=== PATIENT | male | born 1935 | race Caucasian/White ===

== ENCOUNTER 2023-06-18 16:29 | Inpatient (IN) | payer MEDICARE ==
[~2023-06-18] VITALS: Ht 172.7 cm; Wt 85.5 kg
[2023-06-18] VITALS (95 sets, daily range): BP systolic 115–143; BP diastolic 85–108; PULSE 87–152; TEMP 97.7–97.8; O2SAT 86–96
[~2023-06-18 16:29] MED LIST: CARDURA 8MG TAB8 MG PO; NORCO 325 MG-51 TAB PO; NORMODYNE200 MG PO; PRINIVIL40 MG PO; ZOCOR 20MG20 MG PO
[2023-06-18] MEDS ORDERED: dilTIAZem 25 MG/5 ML VIAL IV ONE (16:45)
[2023-06-18 17:34] LABS: BASO # 0.1 K/mm3 (0.0-0.2); BASO % 0.8 % (0.0-2.0); EOS # 0.1 K/mm3 (0.0-0.7); EOS % 0.9 % (0.0-4.0); GRAN # 4.5 K/mm3 (1.4-6.5); GRAN % 68.4 % (42.2-75.2); HEMATOCRIT 40.5 % (42.0-52.0); HEMOGLOBIN 13.2 g/dl (13.5-18.0); LYMPH # 1.3 K/mm3 (1.2-3.4); LYMPH % 19.2 % (20.0-51.0); MEAN CELL VOLUME 101 fl (80.0-100.0); MEAN CORPUSCULAR HEMOGLOBIN 33 pg (27-31); MEAN CORPUSCULAR HGB CONC 33 g/dl (33.0-37.0); MEAN PLATELET VOLUME 10.4 fl (7.4-10.4); MONO # 0.7 K/mm3 (0.1-0.6); MONO % 10.5 % (1.7-9.3); PLATELET COUNT 154 K/mm3 (130-400); RED BLOOD COUNT 4.03 M/mm3 (4.20-5.60); REDCELL DISTRIBUTION WIDTH-CV 14.5 % (11.5-14.5)
[2023-06-18 18:12] LABS: ALBUMIN 3.7 gm/dL (3.4-4.8); BILIRUBIN,TOTAL 1.3 mg/dL (0.2-1.2); CALCIUM 10.1 mg/dL (8.4-10.2); CREATININE, serum 0.96 mg/dL (0.72-1.25); POTASSIUM 4.1 mmol/L (3.5-4.5); TOTAL PROTEIN 6.2 gm/dL (6.2-8.1)
[2023-06-18 18:22] LABS: TROPONIN-I 0.052 ng/mL (0.00-0.033)
[2023-06-18] MEDS ORDERED: Acetaminophen 325 MG TAB PO PRN (18:45)
[2023-06-18] MEDS ORDERED: Heparin 5,000 UNITS/ML 1 ML VIAL IV ONE (19:00)
[2023-06-18] MEDS ORDERED: Heparin 5,000 UNITS/ML 1 ML VIAL IV PRN (19:00)
[2023-06-18] MEDS ORDERED: Heparin/D5W 250 ML IV SCH (19:00)
[2023-06-18] MEDS ORDERED: NS 50 ML IV SCH (19:05)
[2023-06-18] MEDS ORDERED: Iohexol 350 - 100 ML VIAL IV ONE (19:05)
[2023-06-18 19:26] LABS: INR 1.2 (0.8-3.0); PROTHROMBIN TIME 12.8 SECONDS (9.7-12.8)
[2023-06-18 19:29] LABS: PARTIAL THROMBOPLASTIN TIME 34.9 SECONDS (26.0-37.0)
[2023-06-18 19:46] LABS: THYROID STIMULATING HORMONE 1.17 uIU/mL (0.350-4.940)
[2023-06-18] MEDS ORDERED: CARDURA XL8 MG PO (20:04)
[2023-06-18] MEDS ORDERED: ICAPS AREDS2 C1 EACH PO (20:05)
[2023-06-18] MEDS ORDERED: Furosemide 40 MG/4 ML VIAL IV ONE (20:30)
--- NOTE | 2023-06-18 20:50 | NUR ---
PATIENT ARRIVED TO ICU VIA BED FROM ER. PATIENT ARRIVED ON CARDIZEM AT MAX RATE OF 15MG/HR AND NOTED TO STILL BE IN AFIB AT 113-130'S. PATIENT ARRIVED ON ROOM AIR AND HAS NO COMPLAINTS OF SHORTNESS OF BREATH AT THIS TIME. PATIENT ARRIVED WITH GLASSES, PANTS, UNDERWEAR, SOCKS, AND SHOES. EVONNE PÉREZ, NOTIFIED OF PATIENTS ARRIVAL WELL CURRENT RATE OF CARDIZEM AND CURRENT HEART RATE.
[2023-06-18] MEDS ORDERED: Eye Formula MVI w/Minerals TABLET PO SCH (21:00)
[2023-06-18] MEDS ORDERED: Atorvastatin 10 MG TAB PO SCH (21:00)
[2023-06-18] MEDS ORDERED: Simvastatin 20 MG **** subs to Atorvastatin 10 MG PO SCH (21:00)
[2023-06-18] MEDS ORDERED: methylPREDNISolone Sod Succ 40 MG/ML VIAL IV SCH (23:30)
[2023-06-18] MEDS ORDERED: dexAMETHasone 4 MG/ML VIAL IV SCH (23:38)
[2023-06-18] MEDS ORDERED: Doxycycline Hyclate 100 MG in NS 150 ML IV SCH (23:45)
[2023-06-19] VITALS (566 sets, daily range): BP systolic 95–127; BP diastolic 62–97; PULSE 76–160; TEMP 97.6–98; O2SAT 52–100
[2023-06-19] MEDS ORDERED: LORazepam 2 MG/ML 1 ML VIAL IV ONE (00:45)
[2023-06-19 04:39] LABS: BASO % 0.5 % (0.0-2.0); EOS # 0.1 K/mm3 (0.0-0.7); EOS % 0.8 % (0.0-4.0); GRAN # 5.2 K/mm3 (1.4-6.5); GRAN % 83.1 % (42.2-75.2); HEMOGLOBIN 13.1 g/dl (13.5-18.0); LYMPH # 0.7 K/mm3 (1.2-3.4); LYMPH % 11.3 % (20.0-51.0); MEAN CELL VOLUME 97 fl (80.0-100.0); MEAN CORPUSCULAR HEMOGLOBIN 33 pg (27-31); MEAN CORPUSCULAR HGB CONC 35 g/dl (33.0-37.0); MEAN PLATELET VOLUME 10.8 fl (7.4-10.4); MONO # 0.2 K/mm3 (0.1-0.6); MONO % 3.8 % (1.7-9.3); PLATELET COUNT 145 K/mm3 (130-400); RED BLOOD COUNT 3.92 M/mm3 (4.20-5.60); REDCELL DISTRIBUTION WIDTH-CV 14.4 % (11.5-14.5)
[2023-06-19 04:57] LABS: CALCIUM 9.9 mg/dL (8.4-10.2); CHOLESTEROL RISK RATIO 2.5; CREATININE, serum 0.92 mg/dL (0.72-1.25); POTASSIUM 4.1 mmol/L (3.5-4.5)
--- NOTE | 2023-06-19 07:00 | NUR ---
REPORT RECEIVED FROM CLOTILDE SLADE. PT RESTING IN BED, VSS. PT IN AFIB BUT RATE IS WELL CONTROLLED. CARDIZEM INFUSING TO PERIPHERAL IV ORDERED. PT IS ALERT AND ORIENTED, DENIES NEEDS AT THIS TIME, CALL LIGHT IN REACH.
--- NOTE | 2023-06-19 08:40 | NUR ---
O2 SATS DROP TO MID 80'S WHILE PT SLEEPS, OXYGEN APPLIED AT 3L PER NC TO KEEP SATS ABOVE 90%.
[2023-06-19] MEDS ORDERED: Pantoprazole 40 MG in NS 10 ML IV SCH (09:00)
[2023-06-19] MEDS ORDERED: Nicotine 14 MG DAILY PATCH TD SCH (09:00)
[2023-06-19] MEDS ORDERED: Albuterol/Ipratropium 3 MG-0.5 MG/3 ML Neb Soln IH PRN (11:00)
[2023-06-19] MEDS ORDERED: predniSONE 20 MG TAB PO SCH (11:00)
--- NOTE | 2023-06-19 11:06 | NUR ---
Social Work met with patient at bedside to discuss discharge planning. Patient arguing wth nurse and attempting to get out of bed. Patient redirected multiple times by nurse. Patient agreeable to talk with SW but did display annoyance with "repeating questions". Patient verified that he lives in [place], [place] with his Lily ([phone]). Patient states he listed his daughter Suad as his DPOA but is unable to provide her contact information. Patient has a living will on file but unable to locate a DPOA document. Patient sees Dr. Brennan as his PCP and uses [facility] pharmacy. Patient states he has two canes at home and drives himself to appointments and drives his to her appointments. Patient plans to return home at discharge. SW spoke with his and daughter on speaker phone who verified patient's information. Discharge Plan: home
[2023-06-19] MEDS ORDERED: Albuterol/Ipratropium 3 MG-0.5 MG/3 ML Neb Soln IH SCH (13:00)
--- NOTE | 2023-06-19 13:52 | NUR ---
Data: Patient accepted Paper Control Clerk visit for prayer. Patient had two visitors who had just arrived. Patient believes that he will be transferred to a room upstairs today. Patient was eating lunch. Patient has a witty sense of humor. Assessment: Patient is grateful to be feeling better, and is enjoying both his visitors and his food. Plan of Care: Paper Control Clerk provided prayer. Chaplains will remain available as needed/requested while Patient is admitted to this hospital.
--- NOTE | 2023-06-19 14:30 | NUR ---
PATIENT CAME FROM ICU. AFTER PATIENT WAS HELPED TO THE BED FROM THE WHEELCHAIR PATIENT HEART RATE KEPT GOING UP. PATIENT WAS TACHYCARDIC AND WITH OXYGEN SATURATION IN THE 80'S.PATIENT OXYGEN WAS INCREASED TO 3L O2/NC. PATIENT HAS HEPARIN DRIP AND CARDIZEM PER EMAR. PATIENT HAS BILATERAL PITTING EDEMA AND A RED ABRATION ON HIS LEFT MIDBACK.CALL LIGHT WITHIN REACH. BED AT LOWEST POSITION.
[2023-06-19] MEDS ORDERED: Furosemide 40 MG TAB PO SCH (16:00)
[2023-06-19] MEDS ORDERED: Apixaban 5 MG TAB PO SCH ×2 (21:00)
[2023-06-20] VITALS (23 sets, daily range): BP systolic 100–139; BP diastolic 60–98; PULSE 50–134; TEMP 96–98.6
[2023-06-20] MEDS ORDERED: dilTIAZem 25 MG/5 ML VIAL IV ONE (05:15)
[2023-06-20 06:21] LABS: CREATININE, serum 1.26 mg/dL (0.72-1.25); MAGNESIUM 1.9 mg/dL (1.6-2.6); POTASSIUM 4.3 mmol/L (3.5-4.5)
--- NOTE | 2023-06-20 08:30 | NUR ---
PATIENT IS REFUSING POST-OP VITALS. PATIENT KEEPS REMOVING HIS BLOOD PRESSURE CUFF AND PULSE OXYMETRY VARIOUS TIMES. PATIENT HAS BEEN EDUCATED ON THE IMPORTANCE OF MONITORING HIS VITAL SIGNS WHILE ON CARDIZEM DRIP AND KEEPIGN HIS NASAL CANULA INPLACE. CALL LIGHT WITHIN REACH. BED ALARM IN PLACE.
--- NOTE | 2023-06-20 08:33 | NUR ---
Patient alert and oriented x4. patient eating breakfast and remains on post-op vitals. patient has bilateral leg edema.bed alarm on. call light within reach.
[2023-06-20] MEDS ORDERED: Verapamil SR 120 MG TAB PO SCH (09:00)
[2023-06-21] VITALS (12 sets, daily range): BP systolic 118–148; BP diastolic 73–95; PULSE 78–134; TEMP 97.4–98.5
--- NOTE | 2023-06-21 08:00 | NUR ---
Pt assessment complete. Pt sitting up in bed, dangling feet. Pt denies pain, n/v, headache, dizziness. Pt had qustions regarding AM meds. Discussed AM meds and answered questions. No further needs at this time. industrial safety and health technician in room. Pt has call light in reach and bed alarm on.
--- NOTE | 2023-06-21 08:10 | NUR ---
Rounded on patient with CLOTILDE Gaona. Agree with assessment as charted. Patient awake, alert and oriented, forgetful. Fall precautions in place. Bed in lowest position with call light within reach.
[2023-06-21] MEDS ORDERED: LR 1,000 ML IV SCH (10:00)
--- NOTE | 2023-06-21 13:54 | NUR ---
Pt reporting 5/10 pain in left flank/back. Pt points to left kidney area. Pt reports pain induced nausea. Pt dry heaving at bedside. Pain meds administered per EMAR.
--- NOTE | 2023-06-21 15:28 | NUR ---
Pt off the floor to labor relations consultant
[2023-06-21] MEDS ORDERED: Amiodarone 200 MG TAB PO SCH (15:58)
[2023-06-21] MEDS ORDERED: Hydrocortisone 1% Cream 30 GM TUBE TP PRN (16:00)
--- NOTE | 2023-06-21 16:26 | NUR ---
PROCEDURE COMPLETED, PT ALERT AND ORIENTED. DENIES PAIN OR NAUSEA. PRODUCTIVE COUGH NOTED. PATIENT TRANSPORTED VIA BED TO [facility], FAMILY WAITING AT BEDSIDE, UPDATE PROVIDED. VITAL SIGNS TAKEN ON ARRIVAL, VSS. RT PRESENT UPON ARRIVAL FOR EKG. TRANSFER OF CARE TO CLOTILDE MARTÍNEZ. CALL LIGHT WITHIN REACH, BED IN LOWEST POSITION, X3 BEDRAILS IN PLACE.
--- NOTE | 2023-06-21 18:02 | NUR ---
Pt resting in bed. and daughter (Suad) are at bedside. Pt denies pain, nausea, headache. No further needs at this time. Pt has call light in reach.
[2023-06-21 19:32] LABS: HEMOGLOBIN 12.9 g/dl (13.5-18.0); MEAN CELL VOLUME 100 fl (80.0-100.0); MEAN CORPUSCULAR HEMOGLOBIN 33 pg (27-31); MEAN CORPUSCULAR HGB CONC 33 g/dl (33.0-37.0); MEAN PLATELET VOLUME 10.4 fl (7.4-10.4); PLATELET COUNT 148 K/mm3 (130-400); RED BLOOD COUNT 3.91 M/mm3 (4.20-5.60); REDCELL DISTRIBUTION WIDTH-CV 14.8 % (11.5-14.5)
[2023-06-21 19:51] LABS: CALCIUM 9.5 mg/dL (8.4-10.2); CREATININE, serum 1.19 mg/dL (0.72-1.25); POTASSIUM 4.3 mmol/L (3.5-4.5)
[2023-06-21 22:40] LABS: ANISOCYTOSIS 1+; BAND 1 % (0-10); LYMPHOCYTE 5 % (20.0-51.0); NEUTROPHILS 93 % (42.0-75.2); OVALOCYTES 1+
[2023-06-21 22:41] LABS: PLATELET ESTIMATE NORMAL (NORMAL)
[2023-06-22 03:13] VITALS: BP 142/90; PULSE 83; TEMP 97.5
--- NOTE | 2023-06-22 05:51 | NUR ---
NURSING SHIFT ASSESSMENT COMPLETED. THE PATIENT WAS ALERT, APPROPRIATE AND INTERACTIVE. THE PATIENT DENIED PAIN OR DISCOMFORT. THE PATIENT ENJOYS SITTING AT THE BEDSIDE WITH HIS FEET ON THE FLOOR. THE BED ALARM IS ON. ALL PERSONAL BELONGINGS ARE WITHIN REACH. THE CALL LIGHT IS WITHIN REACH. THE BED IS IN THE LOW POSITION. THE PLAN OF CARE AND EVENING MEDICATIONS REVIEWED. QUESTIONS ANSWERED.
[2023-06-22 07:07] VITALS: BP 154/87; PULSE 86; TEMP 97.5
--- NOTE | 2023-06-22 08:00 | NUR ---
Pt sitting at bedside with feet dangling. A&Ox4. VSS. S1S2 with irregular rhythm. Clear lung sounds. Palpable pulses and baseline strength in all extremities. Pt on 3L O2 via NC. Pt uses urinal at bedside. IV in left upper arm is patent. Pt denies pain, n/v, headache, dizzines. Pt has call light in reach and bed alarm on.
[2023-06-22] MEDS ORDERED: Furosemide 40 MG/4 ML VIAL IV ONE (09:00)
[2023-06-22] MEDS ORDERED: Spironolactone 25 MG TAB PO SCH (09:00)
[2023-06-22] MEDS ORDERED: Lisinopril 20 MG TAB PO SCH (09:49)
[2023-06-22] MEDS ORDERED: ELIQUIS 5MG PO (10:04)
[2023-06-22] MEDS ORDERED: PACERONE200 MG PO (10:07)
--- NOTE | 2023-06-22 10:40 | NUR ---
Patient was at 91% on RA sitting. He walked 200 ft. and dropped to 87% and need 3L NC to get to 90%. RT left patient on 2L resting.
[2023-06-22 11:11] VITALS: BP 131/102; PULSE 84; TEMP 97.4
--- NOTE | 2023-06-22 11:20 | NUR ---
Notified Dr Chen about Pt's BP. Diastolic pressure in low 100s. Per provider "Pt is ok."
[2023-06-22] MEDS ORDERED: ALDACTONE 25MG25 M1 PO (11:22)
[2023-06-22] MEDS ORDERED: TOPROL XL 25MG25 MG PO (11:24)
[2023-06-22] MEDS ORDERED: LASIX 40MG TABL40 MG PO (11:25)
[2023-06-22] MEDS ORDERED: OXYGEN NASAL.CANN (11:29)
--- NOTE | 2023-06-22 12:00 | NUR ---
Pt sitting on edge of bed eating lunch. No concerns at this time. and daughter at bedside. Pt denies pain. Pt has call light in reach and bed alarm on.
--- NOTE | 2023-06-22 13:24 | NUR ---
lay out worker was notified by Dr. Chen that patient is medically stable for discharge. Patient may need oxygen, exercise oximetry test has been ordered. EUGENIA notes PT/OT has not been ordered. EUGENIA contacted Dr. Chen and requested PT/OT orders. EUGENIA spoke with LUCY Avery, whom expressed he was not recommending patient return home at this time as he is unstable. EUGENIA notes patient's RT exercise oximetry test was completed and patient needs 3 liters of oxygen with exertion. EUGENIA faxed referral to [facility] for oxygen. EUGENIA met with patient, and patient's daughter to review recommendations. SW expressed the hospital is recommending SNF and provided the Medicare.gov list of options. Patient stated no he would not go to a facility, he wants to return home. SW asked patient's family if they felt comfortable caring for patient in the home. Patient's daughter stated she is retired and would be able to assist patient at home if needed. Patient expressed he wanted to go home with home health services. SW provided Medicare.gov list of options. SW expressed she would return in a bit for patient's choice of home health. SW returned to meet with patient to discuss patient's choice. Patient chose [facility]. SW again discussed patient's family's ability to care for him at home. SW asked patient's if she feels comfortable caring for him at home, patient's stated "I'll try." Patient's daughter expressed she would be available for additional support. SW expressed if the patient decided when he got home that it was not working out and patient wanted to go to a SNF for rehab, he would have 30 days from discharge to go to SNF. EUGENIA confirmed patient's family kept the Medicare.gov list of nursing facilities and the family expressed they would look at this option if he does not do well at home with home health. Patient's daughter stated that patient is about at his baseline minus the oxygen need. Patient's daughter mentioned that patient is a smoker and was concerned about him smoking with the oxygen. SW expressed with patient that he is unable to smoke with the oxygen on or near his tank. Patient expressed he understood. SW reviewed the important message from medicare with patient. Patient understood. No questions or concerns. Patient signed the form. EUGENIA made a copy, placed original in chart and provided copy to patient. EUGENIA was notified patient's oxygen would be here at 2 pm. SW notified patient and patient's family. No further questions or concerns at this time. SW notified patient's nurse and doctor with patient's plan to return home with home health. SW faxed referral and discharge orders to [facility]. Discharge plan: Home with home health
--- NOTE | 2023-06-22 14:08 | NUR ---
child daycare worker left a message for the patient's PCP social security benefits interviewer.
--- NOTE | 2023-06-22 14:30 | NUR ---
Educated Pt on discharge instructions and information. Daughter and in room. D/C IV from upper left arm and took off tele. Answered Pt and family quesitons. Pt transported to car via WC.
[2023-06-28] MEDS ORDERED: Amiodarone 200 MG TAB PO SCH (21:00)
[2023-07-06] MEDS ORDERED: Amiodarone 200 MG TAB PO SCH (09:00)
== END 2023-06-22 14:30 | disposition home health service (06) | DRG 281 ==
LOC: COL.ER 16:29 → MEDICAL 18:50 → ICU 18:50 → MEDICAL 06-19 14:26
PROVIDERS: Emergency Medicine; Internal Medicine; Nurse Practitioner; Nurse Practitioner Family; ADMIT Hospitalist
DX: I48.91 Unspecified atrial fibrillation (principal); I21.4 Non-ST elevation (NSTEMI) myocardial infarction; J44.1 Chronic obstructive pulmonary disease with (acute) exacerbation; I11.0 Hypertensive heart disease with heart failure; I50.9 Heart failure, unspecified; E78.5 Hyperlipidemia, unspecified; N40.0 Benign prostatic hyperplasia without lower urinary tract symptoms; D64.9 Anemia, unspecified
CPT/HCPCS: C9113; J0282; J1100; J1644; J1940; J2060; J2704; J7060; J7512; Q9967

== ENCOUNTER 2023-09-13 16:46 | Inpatient (IN) | payer MEDICARE ==
[~2023-09-13] VITALS: Ht 172.7 cm; Wt 67.7 kg
[~2023-09-13 16:46] MED LIST changes: +ALDACTONE 25MG25 M1 PO; +CARDURA XL8 MG PO; +ELIQUIS 5MG PO; +ICAPS AREDS2 C1 EACH PO; +LASIX 40MG TABL40 MG PO; +OXYGEN NASAL.CANN; +PACERONE200 MG PO; +TOPROL XL 25MG25 MG PO
[2023-09-13] MEDS ORDERED: Morphine 4 MG/ML VIAL IV ONE (17:15)
[2023-09-13] MEDS ORDERED: Ondansetron 4 MG/2 ML VIAL IV ONE (17:15)
[2023-09-13 17:25] LABS: HEMATOCRIT 38.1 % (42.0-52.0); HEMOGLOBIN 12.8 g/dl (13.5-18.0); MEAN CELL VOLUME 97 fl (80.0-100.0); MEAN CORPUSCULAR HEMOGLOBIN 33 pg (27-31); MEAN CORPUSCULAR HGB CONC 34 g/dl (33.0-37.0); MEAN PLATELET VOLUME 9.6 fl (7.4-10.4); PLATELET COUNT 270 K/mm3 (130-400); RED BLOOD COUNT 3.91 M/mm3 (4.20-5.60); REDCELL DISTRIBUTION WIDTH-CV 14.1 % (11.5-14.5)
[2023-09-13 17:42] LABS: CALCIUM 10.9 mg/dL (8.4-10.2); CREATININE, serum 3.06 mg/dL (0.72-1.25); POTASSIUM 5.5 mEq/L (3.5-4.5); TOTAL PROTEIN 6.9 g/dl (6.2-8.1)
[2023-09-13 17:45] LABS: PH 8.5 (5.0-8.5); URINE APPEARANCE TURBID (CLEAR/HAZY); URINE BLOOD 3+ (NEGATIVE); URINE COLOR YELLOW (YELLOW); URINE GLUCOSE TRACE (NEGATIVE); URINE KETONE NEGATIVE (NEGATIVE); URINE NITRATE POSITIVE (NEGATIVE); URINE PROTEIN(semi-quant) 2+ (NEGATIVE); URINE UROBILINOGEN 0.2 E.U/dL (0.2-1.0)
[2023-09-13 18:06] LABS: COLLECTION METHOD CATHETER
[2023-09-13 18:07] LABS: MUCOUS PRESENT (NOT PRESENT); URINE BACTERIA MANY /hpf (NONE SEEN); URINE RBC >50 /hpf (0-2); URINE WBC >50 /hpf (0-2)
[2023-09-13 18:19] LABS: BAND 6 % (0-10); LYMPHOCYTE 7 % (20.0-51.0); NEUTROPHILS 84 % (42.0-75.2)
[2023-09-13 18:21] LABS: ANISOCYTOSIS 1+; PLATELET ESTIMATE NORMAL (NORMAL)
[2023-09-13] MEDS ORDERED: NS 1,000 ML IV ONE (18:45)
[2023-09-13] MEDS ORDERED: Patiromer 8.4 G Oral Susp **** subs to Sodium Zirconium Cyclosilicate 10 G Oral Susp PO SCH (21:45)
[2023-09-13] MEDS ORDERED: NS 1,000 ML IV SCH (22:30)
[2023-09-13] MEDS ORDERED: Ondansetron 4 MG/2 ML VIAL IV PRN (22:30)
[2023-09-13] MEDS ORDERED: *Potassium Replacement Protocol MC SCH (22:30)
[2023-09-13] MEDS ORDERED: Acetaminophen 325 MG TAB PO PRN (22:30)
[2023-09-13 22:44] VITALS: BP 152/70; PULSE 64; TEMP 98.3
[2023-09-13] MEDS ORDERED: KLOR-CON M2020 MEQ PO (23:10)
[2023-09-13] MEDS ORDERED: FLOMAX 0.40.4 MG/CAP PO (23:11)
[2023-09-13] MEDS ORDERED: FARXIGA10 PO (23:11)
[2023-09-13 23:58] VITALS: BP_SYST 152
[2023-09-14] VITALS (12 sets, daily range): BP systolic 87–209; BP diastolic 51–116; PULSE 54–86; TEMP 97.5–102.5
--- NOTE | 2023-09-14 00:04 | NUR ---
patient arrived from ED at 2240, alert and oriented x4. denies chest pain and shortness of breath.IV in LF is patent, site is clean dry and intact. bilateral elbows with small abrasions, scabs and bruising scattered on extremities.heels dry and scaly noted. urinary catheter draining hematuria red/pinkish color. pt has no further needs, questions, or concerns at this time. fall precautions in place, call light within reach. will continue to monitor.
[2023-09-14 06:51] LABS: MEAN CELL VOLUME 99 fl (80.0-100.0); MEAN CORPUSCULAR HGB CONC 34 g/dl (33.0-37.0); MEAN PLATELET VOLUME 9.8 fl (7.4-10.4); PLATELET COUNT 238 K/mm3 (130-400); RED BLOOD COUNT 3.16 M/mm3 (4.20-5.60); REDCELL DISTRIBUTION WIDTH-CV 13.8 % (11.5-14.5)
[2023-09-14 06:54] LABS: HEMATOCRIT 31.2 % (42.0-52.0); HEMOGLOBIN 10.7 g/dl (13.5-18.0); MEAN CORPUSCULAR HEMOGLOBIN 34 pg (27-31)
--- NOTE | 2023-09-14 06:55 | NUR ---
PATINET AWAKE AND ALERT ,SITTING UP IN BED, CALL LIGHT WITHIN REACH, FALL PRECAUTIONS IN PLACE. PATIENT AWARE OF NPO STATUS UNTIL CARDIOLOGY AND UROLOGY ROUNDS ARE MADE. PATIENT IN AGREEMENT.
[2023-09-14 07:05] LABS: ALBUMIN 2.3 g/dL (3.4-4.8); CALCIUM 9.8 mg/dL (8.4-10.2); CREATININE, serum 2.79 mg/dL (0.72-1.25); MAGNESIUM 2.3 mg/dL (1.6-2.6); PHOSPHOROUS 3.7 mg/dL (2.3-4.7); POTASSIUM 4.8 mEq/L (3.5-4.5)
[2023-09-14 07:28] LABS: BAND 9 % (0-10); LYMPHOCYTE 4 % (20.0-51.0); NEUTROPHILS 81 % (42.0-75.2)
[2023-09-14 07:29] LABS: PLATELET ESTIMATE NORMAL (NORMAL)
[2023-09-14] MEDS ORDERED: Sodium Zirconium Cyclosilicate for Oral Susp 10 GM PACKET PO SCH (09:00)
[2023-09-14] MEDS ORDERED: CORDARONE200 MG/TAB PO (11:23)
[2023-09-14] MEDS ORDERED: LASIX 40MG TABL40 MG PO (11:24)
[2023-09-14] MEDS ORDERED: Dextrose 50% Water 25 GM/50 ML SYRINGE IV PRN (11:30)
[2023-09-14] MEDS ORDERED: Dextrose (Glucose) 15 GM (4 x 3.75 GM) Chewable TABLET PACK PO PRN (11:30)
[2023-09-14] MEDS ORDERED: Glucagon 1 MG VIAL IM PRN (11:30)
--- NOTE | 2023-09-14 11:48 | NUR ---
Expansion Envelope Maker Hand met with patient and his daughter, Suad (ph#[phone]) to discuss discharge planning. Patient lives in [place] with his , Lily (ph#[phone]) and sees Dr. Brennan for primary care. Patient gets his medications from [facility] with no difficulties at this time. Patient has a walker and cane at home, but only uses the cane when he leaves the home. Patient is normally independent with ADLS and [facility] Patient stated Suad is his DPOA-HC. Patient plans to return home at time of discharge and would [facility] with [facility] SW studentEmily faxed updates to [facility]. Discharge Plan: Home with HH
[2023-09-14] MEDS ORDERED: Insulin Lispro (HumaLOG) SQ SCH (12:00)
--- NOTE | 2023-09-14 12:33 | NUR ---
POSITIVE BLOOD CULTURE RESULT TO [facility] LORENZANA. NO NEW ORDERS AT THIS TIME.
--- NOTE | 2023-09-14 12:34 | NUR ---
BUSINESS SUPPORT LIAISON HAS ATTEMPTED 3 TIMES SINCE 7AM TO REACH THE UROLOGIST, NO SUCCESS.
--- NOTE | 2023-09-14 18:44 | NUR ---
PATIENT AWAKE AND ALERT, SITTING UP IN BED. PATEINT DENIES ANY NEEDS OR OCMPLAINTS AT THIS TIME. CALL LIGHT WITHIN REACH.
--- NOTE | 2023-09-14 20:30 | NUR ---
PATIENT SITTING UP IN BEDSIDE RECLINER WATCHING TV WITH NO FAMILY PRESENT WTIH NO ACUTE DISTRESS NOTED. PATIENT ON ROOM AIR. NS INFUSING INTO LEFT FOREARM WITH NO COMPLICATIONS NOTED. TELEMETRY INTACT. BRAEUX CATH INTACT, PATENT, AND DRAINING CLEAR YELLOW URINE. ASSESSMENT AND MEDICATION ADMINISTRATION COMPLETED AT THIS TIME. PATIENT TOLERATED WELL. PATIENT REQUESTED ASSISTANCE TO GET BACK INTO BED. PATIENT ASSISTED WITH STAND BY ASSIST. PATIENT ASSISTED TO REPOSITION FOR COMFORT. PATIENT DENIES ANY OTHER NEEDS. BED IN LOW POSITION WITH WHEELS LOCKED WITH RAILS UP X3 AND CALL LIGHT WITHIN REACH. BED ALARM ON.
[2023-09-15] VITALS (18 sets, daily range): BP systolic 94–131; BP diastolic 40–71; PULSE 52–77; TEMP 97.4–98.5
[2023-09-15 06:52] LABS: BASO % 0.1 % (0.0-2.0); EOS % 0.1 % (0.0-4.0); GRAN # 12.9 K/mm3 (1.4-6.5); GRAN % 84.1 % (42.2-75.2); HEMOGLOBIN 10.2 g/dl (13.5-18.0); LYMPH # 0.9 K/mm3 (1.2-3.4); LYMPH % 5.9 % (20.0-51.0); MEAN CELL VOLUME 96 fl (80.0-100.0); MEAN CORPUSCULAR HEMOGLOBIN 32 pg (27-31); MEAN CORPUSCULAR HGB CONC 34 g/dl (33.0-37.0); MEAN PLATELET VOLUME 9.8 fl (7.4-10.4); MONO # 1.3 K/mm3 (0.1-0.6); MONO % 8.7 % (1.7-9.3); PLATELET COUNT 235 K/mm3 (130-400); RED BLOOD COUNT 3.16 M/mm3 (4.20-5.60); REDCELL DISTRIBUTION WIDTH-CV 13.4 % (11.5-14.5)
[2023-09-15 06:54] LABS: HEMATOCRIT 30.3 % (42.0-52.0)
[2023-09-15 07:20] LABS: CALCIUM 9.6 mg/dL (8.4-10.2); CREATININE, serum 2.28 mg/dL (0.72-1.25); MAGNESIUM 2.2 mg/dL (1.6-2.6); PHOSPHOROUS 3.2 mg/dL (2.3-4.7); POTASSIUM 4.2 mEq/L (3.5-4.5)
[2023-09-15] MEDS ORDERED: Regadenoson 0.08 MG/ML 5 ML SYRINGE IV SCH (08:50)
--- NOTE | 2023-09-15 08:58 | NUR ---
PATIENT ASLEEP, LAYING DOWN IN BED. PATIENT AROUSES EASILY TO NAME. PATEINT DENIES ANY NEEDS OR COMPLAINTS AT THIS TIME. CALL LIGHT WITHIN REACH. FALL PRECAUTIONS IN PLACE.
[2023-09-15] MEDS ORDERED: Amiodarone 200 MG TAB PO SCH (09:00)
--- NOTE | 2023-09-15 11:15 | NUR ---
PATIENT HAD STRESS TEST, PER CARDIOLOGY NO ABNORMALITIES, PATIEN CLEARED FOR DIET AND HOSPITALIST TEAM AWARE.
--- NOTE | 2023-09-15 11:43 | NUR ---
PATIENT AWAKE AND ALERT, SITTIGN UP IN RECLINER. FAMILY AT BEDSIDCE, CALL LIGHT WITHIN REACH.
--- NOTE | 2023-09-15 13:48 | NUR ---
ECHO AT BEDSIDE
--- NOTE | 2023-09-15 14:43 | NUR ---
Wastewater Treatment Engineer contacted [facility] and provided update that patient may discharge tomorrow.
--- NOTE | 2023-09-15 17:00 | NUR ---
PATIENT AWAKE AND ALERT, SITTING UP IN BED. PATIENT DENIES ANY NEEDS OR COMPLAINTS AT THIS TIME.
--- NOTE | 2023-09-15 17:00 | NUR ---
PATIENT AWAKE AND ALERT, SITTING UP IN THE RECLINER. PATIENTS IVF AND ANTX INFUSING ORDERED.BREAUX CATHETER PATENT AND DRAINING TO GRAVITY. PATINET DENIES ANY NEEDS OR COMPLAINTS AT THIS TIME. CALL LIGHT WTIHIN REACH. FALL PRECAUTIONS IN PLACE
--- NOTE | 2023-09-15 21:53 | NUR ---
PATIENT IS SITTING UP IN CHAIR AT THIS TIME. STATES HE IS HAVING SOME GENERALIZED DISCOMFORT. DENIES ANY NAUSEA, CHEST PAIN, SHORTNESS OF BREATH. CURRENTLY STABLE ON ROOM AIR. HE IS ALERT AND ORIENTED. CALL LIGHT IS WITHIN REACH. BED LOCKED AND IN LOW POSITION.
[2023-09-16 01:47] VITALS: BP_SYST 111
[2023-09-16 03:14] VITALS: BP 135/71; PULSE 67; TEMP 97.9
[2023-09-16 04:32] VITALS: BP_SYST 135
[2023-09-16 06:50] LABS: HEMOGLOBIN 11.1 g/dl (13.5-18.0); MEAN CELL VOLUME 97 fl (80.0-100.0); MEAN CORPUSCULAR HEMOGLOBIN 33 pg (27-31); MEAN CORPUSCULAR HGB CONC 34 g/dl (33.0-37.0); MEAN PLATELET VOLUME 9.4 fl (7.4-10.4); PLATELET COUNT 264 K/mm3 (130-400); RED BLOOD COUNT 3.38 M/mm3 (4.20-5.60); REDCELL DISTRIBUTION WIDTH-CV 13.5 % (11.5-14.5)
[2023-09-16 06:58] LABS: HEMATOCRIT 32.8 % (42.0-52.0)
[2023-09-16 07:05] LABS: ALBUMIN 2.2 g/dL (3.4-4.8); CREATININE, serum 2.18 mg/dL (0.72-1.25); MAGNESIUM 2.1 mg/dL (1.6-2.6); PHOSPHOROUS 2.6 mg/dL (2.3-4.7); POTASSIUM 4.2 mEq/L (3.5-4.5)
[2023-09-16 07:28] VITALS: BP 149/77; PULSE 59; TEMP 98
[2023-09-16 07:34] LABS: BAND 1 % (0-10); LYMPHOCYTE 6 % (20.0-51.0); METAMYELOCYTE 1 % (0-0); NEUTROPHILS 87 % (42.0-75.2)
[2023-09-16] MEDS ORDERED: AMOXICILLIN/CLA1 TA1 PO (08:52)
[2023-09-16 09:00] VITALS: BP_SYST 149
--- NOTE | 2023-09-16 10:10 | NUR ---
patient alert and oriented x4. patient denies pain at this time. patient sitting in recliner ready to go home per patient. family at bed side. patient shift assessment completed. patient on room air, fluids running per emar. patient denies any concerns at this time. rojas draining yellow urine. call light within reach. chair alarm on.
--- NOTE | 2023-09-16 10:25 | NUR ---
patient discharge instructions given. patient and family member questions were answered patient. patient and family member verbalized understanding. patient IV access removed.patient was instructed to wait until the PCT came in to assist with dressing and getting patient belonging.Patient chair alarm inplace. call light within reach.
--- NOTE | 2023-09-16 10:35 | NUR ---
patient escorted out of hospital in wheelchair by PCT.
--- NOTE | 2023-09-16 14:47 | NUR ---
Hoisting Machine Operator contacted [facility] and faxed discharge orders.
== END 2023-09-16 10:35 | disposition home health service (06) | DRG 872 ==
LOC: COL.ER 16:46 → MEDICAL 19:50
PROVIDERS: Emergency Medicine; ADMIT Internal Medicine
DX: A41.9 Sepsis, unspecified organism (principal); N17.9 Acute kidney failure, unspecified; N39.0 Urinary tract infection, site not specified; R65.20 Severe sepsis without septic shock; R33.9 Retention of urine, unspecified; N32.0 Bladder-neck obstruction; E87.5 Hyperkalemia; I48.0 Paroxysmal atrial fibrillation; Z79.01 Long term (current) use of anticoagulants; I51.7 Cardiomegaly; I10 Essential (primary) hypertension; E78.5 Hyperlipidemia, unspecified; E11.9 Type 2 diabetes mellitus without complications; Z79.4 Long term (current) use of insulin
CPT/HCPCS: A9500-JZ; J2270; J2405; J2543; J2785; J7030